=== PATIENT | male | born 1980 | race African-American/Black ===

== ENCOUNTER → 2017-01-17 | Outpatient (CLI) | payer OTHER ==
--- NOTE | ~2017-01-17 | CR181 ---
[facility] A Service of [facility] & [facility] RADIOLOGY TEXT RESULTS PATIENT: NORBERT WEST LOCATION: [facility] : 78 UNIT #: [id number] AGE: [address]: Poppy Vergara APRN SEX: M ORDER DR: [id number] [facility] [address] [place], [place] [address] [id number] O MR#: [id number] Acc #: [id number] NAME: NORBERT WEST : 1980 SEX: M STUDY DATE/TIME: 01/17/2017 17:11 UNIT: [facility] ROOM: STUDY DESCRIPTION: CR Lumbar Spine 2 or 3 Views Attending Physician: Poppy Vergara Aprn Referring Physician: Poppy Vergara Aprn Ordering Physician: Poppy Vergara Aprn Primary Care Physician: Poppy Vergara Aprn MEDICAL IMAGING REPORT This report is preliminary unless electronic signature is present EXAM Lumbar spine 3 views, 01/17/2017 HISTORY Low back pain for 8 years while sitting. Pain primarily in middle of back worsening in the last 3 days. No known injury. FINDINGS AP and lateral projections of the lumbar segment show good mineralization of both anterior and posterior elements. They are all anatomically normal without indication of fracture, dislocation, or malignant change of a sclerotic or lytic type. There is no congenital defect noted. The sacroiliac joints are normal. IMPRESSION Normal lumbar spine. Dictated by... Theo Mcduffie M.D. THIS IS AN ELECTRONICALLY VERIFIED REPORT Theo Mcduffie M.D. at 01/19/2017 8:10 AM CALOS/bogdan TD: 01/18/2017 10:11 JOB #: [id number] MEDICAL IMAGING REPORT Page 1 of 1 COPY
== END | disposition home or self-care (01) ==
LOC: CRAD 16:54
DX: M54.5 Low back pain (principal)
CPT/HCPCS: 72100

== ENCOUNTER 2017-02-10 21:17 | Emergency (ER) | payer OTHER | END 2017-02-11 01:30 | disposition left against medical advice (07) | LOC: CED 21:17 | DX: Z53.21 Procedure and treatment not carried out due to patient leaving prior to being seen by health care provider (principal) ==